=== PATIENT | female | born 1965 | race Caucasian/White ===

== ENCOUNTER 2019-05-18 05:33 | Outpatient (CLI) | payer OTHER ==
[~2019-05-18] VITALS: Ht 172.7 cm; Wt 59.5 kg
[2019-05-18] MEDS ORDERED: ESTR1PAT90 TD (09:13)
[2019-05-18] MEDS ORDERED: CETI10TA20 PO (09:15)
== END 2019-05-18 09:37 | disposition home or self-care (01) ==
LOC: PREOP 05:33
PROVIDERS: ATTEND Surgery
DX: Z01.818 Encounter for other preprocedural examination (principal)

== ENCOUNTER 2019-05-25 07:16 | Day surgery (SDC) | payer OTHER ==
[~2019-05-25] VITALS: Ht 172.7 cm; Wt 59.5 kg
[~2019-05-25 07:16] MED LIST: CETI10TA20 PO; ESTR1PAT90 TD
[2019-05-25 07:25] VITALS: BP 133/80
[2019-05-25] MEDS ORDERED: LACTATED RINGERS 1,000 ML IV STA (07:31)
[2019-05-25] MEDS ORDERED: LACTATED RINGERS 1,000 ML IV ONE (07:38)
[2019-05-25] MEDS ORDERED: PROPOFOL INJECTION 50 ML IV ONE (07:39)
[2019-05-25] MEDS ORDERED: MIDAZOLAM 2 MG/2 ML (VERSED) VIAL ONE (07:40)
[2019-05-25 09:35] VITALS: BP 138/72
[2019-05-25 09:40] VITALS: BP_SYST 128; BP_SYST 138; BP_DIAS 72; BP_DIAS 77
--- NOTE | 2019-05-25 09:49 | Anesthesia-General Post-Op ---
MAC Patient Condition Mental Status/LOC: Same as Preop Cardiovascular: Satisfactory Nausea/Vomiting: Absent Respiratory: Satisfactory Pain: Controlled Complications: Absent Post Op Complications Complications None Follow Up Care/Instructions Patient Instructions None needed. Anesthesiology Discharge Order Discharge Order Patient is doing well, no complaints, stable vital signs, no apparent adverse anesthesia problems. MARIAH LIMA DO May 25, 2019 09:49
--- NOTE | 2019-05-25 09:57 | Progress Note-Post Operative ---
Post-Operative Progess Note Surgeon (s)/Music Worker (s) Surgeon GONSALO VENTURA DO Music Worker: None Pre-Operative Diagnosis screening colon Post-Operative Diagnosis Colon polyps internal Hemorrhoids Procedure & Operative Findings Date of Procedure 05/25/19 Procedure Performed/Findings Colon with snare Anesthesia Type IV sedation by HVAC JOURNEYMAN Estimated Blood Loss Estimated blood loss (mL): scant Specimens/Packing Specimens Removed descending colon polyp x 3 cecal polyp GONSALO VENTURA DO May 25, 2019 09:57
--- NOTE | 2019-05-25 09:58 | Endoscopy Discharge Instruct ---
Endo Procedure/Findings Findings 1.: Polyp 2.: Internal Hemorrhoids Discharge Instructions - Activity: You might feel a little sleepy until tomorrow. This is due to the medicine you received to relax you. Until tomorrow, you should: NOT drive a car, operate machinery or power tools. NOT drink any alcoholic beverages. NOT make any important decisions or sign importortant papers. Do not return to work until tomorrow, unless otherwise instructed. Resume previous activities tomorrow. Diet: Start by taking liquids. If you tolerate liquids, advance to solid food. make an appointment for one week 1.: Colonscopy in 5 years Notify Physician - If you experience excessive bleeding, unusual abdominal pain, fever, or chest pain, contact your doctor immediately. GONSALO VENTURA DO May 25, 2019 09:58
[2019-05-25 10:10] VITALS: BP 138/78
[2019-05-25 10:15] VITALS: BP 138/78
--- NOTE | 2019-05-25 10:15 | NUR ---
ALERT, HAS TAKEN PO FLUIDS WITHOUT PROBLEM, PASSED FLATUS AND DENIES COMPLAINTS. STATES SHE IS READY FOR DISMISSAL.
--- NOTE | 2019-05-28 05:42 | OPERATIVE REPORT ---
DATE OF SERVICE: 05/25/2019 PREOPERATIVE DIAGNOSIS: Screening colonoscopy. POSTOPERATIVE DIAGNOSES: 1. Colon polyps. 2. Internal hemorrhoids. PROCEDURE: Colonoscopy with snare polypectomy. SURGEON: Renzo Unger DO. CASH PROCESSOR: None. ANESTHESIA: IV sedation by WELDER APPRENTICE GAS. SPECIMEN: Three polyps in the descending colon, one from the cecum. BLOOD LOSS: Scant. FLUIDS: Per anesthesia. POSTOPERATIVE CONDITION: Stable. INDICATION FOR PROCEDURE: The patient is a 53-year-old female who has never had a colonoscopy, needs one for screening. FINDINGS: The patient had 3 polyps in the descending colon, one in the cecum. She also had some internal hemorrhoids. No other obvious pathology. PROCEDURE NOTE: After informed consent was obtained, the patient was brought to the endoscopy suite, placed in the bed in left lateral decubitus position. She was administered IV sedation by the WELDER APPRENTICE GAS who then monitored her vitals the entire time, heart rate, blood pressure and pulse ox and the scope was inserted. On the way in, in the descending colon, saw 3 small polyps, did snare polypectomies of these, able to remove them completely and then pushed all the way to the cecum. In the cecum, took a picture of appendiceal orifice, noted another polyp, did a snare polypectomy of this as well and then noted the ileocecal valve and then slowly withdrew the scope, insufflating to look circumferentially looking at the cecum, up the ascending colon to the hepatic flexure, then down the transverse colon, splenic flexure, into the descending colon down into the sigmoid and finally into the rectum, retroflexed the rectal vault, saw some internal hemorrhoids, took a picture of these and then removed the scope. The patient tolerated the procedure and recovered in endoscopy suite. Job ID: [id number] DocumentID: [id number] Dictated Date: 05/27/2019 21:43:50 Concrete Placement Equipment Operator Date: 05/28/2019 05:41:10 Dictated By: RENZO UNGER DO
== END 2019-05-25 10:15 | disposition home or self-care (01) ==
LOC: ENDO 07:16
PROVIDERS: ATTEND Surgery
DX: Z12.11 Encounter for screening for malignant neoplasm of colon (principal); D12.0 Benign neoplasm of cecum; K64.8 Other hemorrhoids; J30.2 Other seasonal allergic rhinitis; Z82.49 Family history of ischemic heart disease and other diseases of the circulatory system; Z80.0 Family history of malignant neoplasm of digestive organs; Z79.52 Long term (current) use of systemic steroids; Z79.899 Other long term (current) drug therapy; Z87.891 Personal history of nicotine dependence

== ENCOUNTER → 2019-05-27 | Outpatient (CLI) | payer OTHER ==
--- NOTE | 2019-05-27 16:03 | Diagnostic Imaging Report ---
INDICATION: Generalized abdominal pain. Patient has had recent colonoscopy. TIME OF EXAM: 3:48 p.m. FINDINGS: The heart size is normal. Lungs are clear. No free air is identified. Bowel gas pattern is nonobstructed. There is moderate stool in the right colon. IMPRESSION: No acute abnormality is detected. Results were called to Dr. Unger prior to this dictation. Dictated by: Dictated on workstation # [id number]
== END ==
LOC: RAD 15:17
PROVIDERS: ATTEND Surgery
DX: R10.84 Generalized abdominal pain (principal); Z98.890 Other specified postprocedural states
CPT/HCPCS: 74022